=== PATIENT | female | born 1970 | race Caucasian/White ===

== ENCOUNTER 2020-11-20 14:29 | Outpatient (CLI) | payer OTHER ==
[2020-11-20 14:47] VITALS: BP 144/84
[2020-11-20] MEDS ORDERED: EPINEPHrine INJECTION 1 MG/ML AMP IM PRN (15:30)
[2020-11-20] MEDS ORDERED: diphenhydrAMINE 50 MG/ML INJ (BENADRYL) IV PRN (15:30)
[2020-11-20] MEDS ORDERED: CASIRIVIMAB/IMDEVIMAB 2,400 MG/NS 250 ML IV ONE ×3 (15:30)
[2020-11-20] MEDS ORDERED: DESV100T PO (15:48)
[2020-11-20 16:53] VITALS: BP 137/83
== END 2020-11-20 16:50 | disposition home or self-care (01) ==
LOC: INFUSION 14:29
PROVIDERS: ATTEND Nurse Practitioner Family
DX: Z23 Encounter for immunization (principal); U07.1 COVID-19